=== PATIENT | female | born 1995 | race Caucasian/White ===

== ENCOUNTER 2019-09-30 16:26 | Emergency (ER) | payer BC ==
[~2019-09-30] VITALS: Ht 165.1 cm; Wt 81.7 kg
[~2019-09-30 16:26] MED LIST: ADVAIR 250-501 EACH; APAP500 PO; BACTRIM DS TAB1 EACH PO; CLEOCIN HCL300 MG PO; COLACE 100 MG100 MG PO; COLACE100 MG PO; DERMOPLAST SPRA56 ML; FERROUS SULFAT325 M1 PO; FLAGYL500 MG PO; HYDROCORTISONE30 G9 RE; IBUPROFEN 600600 M1 PO; IRON325 PO; KEFLEX500 MG PO; KEFLEX750 MG PO; LANOLIN56 GM; LAXATIVE; MEDROL DOSPAK21 TAB PO; NOHOMEMEDICATIONS; NORCO 5-325 TA1 EACH PO; PENICILLIN VK500 M1 PO; PERCOCET 5-3251 EACH PO; PRENATAL; PROVENTIL HFA6.7 G1 INH; TUCKS1 EAC1 TP; TYLENOL COLD C1 EAC1
[2019-09-30 17:14] LABS: URINE BILIRUBIN NEGATIVE (Negative); URINE BLOOD NEGATIVE (Negative); URINE CLARITY CLEAR; URINE COLOR YELLOW; URINE GLUCOSE-RANDOM* NEGATIVE (Negative); URINE KETONES TRACE (Negative); URINE LEUKOCYTES-REFLEX NEGATIVE (Negative); URINE NITRITE-REFLEX NEGATIVE (Negative); URINE PROTEIN (DIPSTICK) NEGATIVE (Negative); URINE SPECIFIC GRAVITY 1.025 (1.005-1.035); URINE UROBILINOGEN 0.2 E.U./dl (0.2-1.0)
[2019-09-30 17:42] LABS: ABSOLUTE NEUTROPHILS 7.3 thou/uL (1.4-8.2); BASOPHILS 0.6 % (0.0-2.0); EOSINOPHILS 0.5 % (0.0-3.0); HEMOGLOBIN 13.2 gm/dL (12.0-15.0); MCH 28.7 pg (26.0-34.0); MCV 86.9 fL (80.0-100.0); MONOCYTES 5.7 % (1.0-8.0); PLATELET COUNT 257 thou/uL (150-400); POLYS 71.2 % (36.0-66.0); RBC 4.61 mil/uL (4.20-5.00); WBC 10.2 thou/uL (4.0-11.0)
[2019-09-30 17:49] LABS: ANION GAP 13 mmol/L (7-16); BUN 7 mg/dL (7-18); CALCIUM 9.3 mg/dL (8.5-10.1); CHLORIDE 100 mmol/L (98-107); CO2 23 mmol/L (21-32); CREATININE 0.8 mg/dL (0.6-1.0); GLUCOSE 92 mg/dL (74-106); POTASSIUM 3.9 mmol/L (3.5-5.1); SODIUM 136 mmol/L (136-145)
[2019-09-30 17:59] LABS: ALBUMIN 4.6 g/dL (3.4-5.0); SGOT 19 U/L (15-37); SGPT 18 U/L (30-65); TOTAL BILIRUBIN 0.6 mg/dL (<0.1-1.0); TOTAL PROTEIN 9.3 g/dL (6.4-8.2); TROPONIN-I <0.06 ng/mL (<0.06)
[2019-09-30 18:07] LABS: AMP/METHAMP POSITIVE (Negative); BARBITURATES Negative (Negative); BENZODIAZEPINES Negative (Negative); COCAINE POSITIVE (Negative); METHADONE Negative (Negative); OPIATES Negative (Negative); PCP Negative (Negative)
[2019-09-30] MEDS ORDERED: PROMS25 WY RECTAL (19:31)
[2019-09-30] MEDS ORDERED: ZOFRAN ODT4 MG PO (19:31)
[2019-09-30 19:47] VITALS: BP 122/76
--- NOTE | 2019-10-03 12:33 | EKG ---
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
== END 2019-09-30 19:47 | disposition home or self-care (01) ==
LOC: ER 16:26
PROVIDERS: Nurse Practitioner Family
DX: F15.10 Other stimulant abuse, uncomplicated (principal); F14.10 Cocaine abuse, uncomplicated; R00.2 Palpitations; R11.2 Nausea with vomiting, unspecified; Z86.2 Personal history of diseases of the blood and blood-forming organs and certain disorders involving the immune mechanism; Z87.891 Personal history of nicotine dependence; Z88.2 Allergy status to sulfonamides